=== PATIENT | female | born 1970 | race Caucasian/White ===

== ENCOUNTER → 2016-05-21 | Outpatient (CLI) | payer OTHER | END | disposition home or self-care (01) | LOC: YCFC.O 08:36 | PROVIDERS: ATTEND Anesthesiology Pain Medicine | DX: Z79.891 Long term (current) use of opiate analgesic (principal) ==

== ENCOUNTER → 2016-06-07 | Outpatient (CLI) | payer OTHER | END | disposition home or self-care (01) | LOC: GMAB 17:25 | PROVIDERS: ATTEND Family Medicine | DX: N39.0 Urinary tract infection, site not specified (principal) ==

== ENCOUNTER → 2016-10-02 | Outpatient (CLI) | payer OTHER | END | disposition home or self-care (01) | LOC: YCFC.O 14:23 | PROVIDERS: ATTEND Anesthesiology Pain Medicine | DX: Z79.891 Long term (current) use of opiate analgesic (principal) ==

== ENCOUNTER → 2017-01-01 | Outpatient (CLI) | payer OTHER | END | disposition home or self-care (01) | LOC: YCFC.O 16:20 | PROVIDERS: ATTEND Anesthesiology Pain Medicine | DX: Z79.891 Long term (current) use of opiate analgesic (principal) ==

== ENCOUNTER → 2017-01-07 | Outpatient (CLI) | payer OTHER ==
--- NOTE | 2017-01-11 15:20 | MAM ---
EXAM DESCRIPTION: 3D Screening BILATERAL : Digital Mammography. CLINICAL HISTORY: 46 years Female SCREENING . No complaints. Mother and sister with breast cancer. Remote family history of ovarian cancer. Postmenopausal. Currently on HRT. COMPARISON: 2-D digital screening bilateral study 11/01/2015. Report from prior examination also reviewed. TECHNIQUE: Bilateral CC and MLO projection full-field images, 3-D tomosynthesis digital mammographic technique. Also bilateral synthesized CC/ MLO full-field images. CAD not utilized. FINDINGS: The breast parenchymal density pattern is: Scattered areas of fibroglandular density. No skin thickening or nipple retraction small intramammary lymph node lateral retroareolar right breast is stable. Also right axillary tail. No focal, stellate mass or density, focal asymmetry , and no suspicious microcalcifications bilaterally. Stable mammograms compared to prior study, taking into account differences in mammographic technique IMPRESSION: BI-RADS CATEGORY: 2 - BENIGN FINDINGS. FOLLOW UP: Routine digital bilateral screening, one year interval from December 2016. Written communication explaining the IMPRESSION and follow-up, will be mailed to the patient and referring health care provider. According to the [employer], yearly mammograms are recommended starting at age 40 and continuing as long as a woman is in good health. Any breast change noted on a breast self-exam should be reported promptly to the patient's healthcare provider. Breast MRI is recommended for women with an approximately 20-25% or greater lifetime risk of breast cancer, including women with a strong family history of breast or ovarian cancer and women who have been treated for Hodgkin's disease. A negative mammographic report should not delay tissue diagnosis in patients with significant clinical history or physical findings. Extremely dense breast tissue limits the sensitivity of digital mammography. Electronically signed by: Colin Christy MD 01/11/2017 3:19 PM CDT
== END | disposition home or self-care (01) ==
LOC: MAMMO 16:48
PROVIDERS: ATTEND Family Medicine
DX: Z12.31 Encounter for screening mammogram for malignant neoplasm of breast (principal)
CPT/HCPCS: 77063; G0202

== ENCOUNTER → 2017-08-12 | Outpatient (CLI) | payer OTHER | LOC: GMAJS 17:37 | PROVIDERS: ATTEND Physician Assistant | DX: N30.00 Acute cystitis without hematuria (principal) ==

== ENCOUNTER → 2017-09-19 | Outpatient (CLI) | payer OTHER | LOC: GMAE 11:01 | PROVIDERS: ATTEND Family Medicine | DX: Z00.00 Encounter for general adult medical examination without abnormal findings (principal) ==

== ENCOUNTER → 2017-09-19 | Outpatient (CLI) | payer OTHER | LOC: GMAE 15:42 | PROVIDERS: ATTEND Family Medicine | DX: D72.819 Decreased white blood cell count, unspecified (principal) ==

== ENCOUNTER → 2017-12-26 | Outpatient (CLI) | payer OTHER ==
--- NOTE | 2017-12-27 09:55 | US ---
EXAM DESCRIPTION: Soft Tissue,Extremity CLINICAL HISTORY: 47 years Female, ENLARGED LYMPH NODES, UNSPECIFIED COMPARISON: None. FINDINGS: Ultrasound of the subcutaneous soft tissues at the area of concern in the right thigh was performed. There are several subtle isoechoic round or ovoid masses in the subcutaneous fat at the area of concern which probably represent lipomas. The largest of these measures up to 3.9 cm maximum diameter, with the majority measuring in the 1 to 2 cm range. No additional mass or fluid collection is seen. No interstitial edema or skin thickening. Additional images of the left thigh show a similar appearing 1 cm lesion at the area of concern in the left thigh. IMPRESSION: Several tiny round or ovoid masses in the subcutaneous fat at the areas of concern in both thighs likely representing lipomas. Otherwise unremarkable exam. Electronically signed by: Efrain Aguirre MD 12/27/2017 9:53 AM CDT
== END ==
LOC: US 14:25
PROVIDERS: ATTEND Family Medicine
DX: R59.9 Enlarged lymph nodes, unspecified (principal)

== ENCOUNTER → 2018-01-21 | Outpatient (CLI) | payer OTHER ==
--- NOTE | 2018-01-23 15:21 | MAM ---
EXAM DESCRIPTION: 3D Screening BILATERAL : Digital Mammography. CLINICAL HISTORY: 48 years Female ANNUAL SCREENING .. No complaints or personal history of breast cancer. Mother and sister with breast cancer. Remote family history of breast cancer. Childbirth. Postmenopausal 15 years. Currently on HRT. Lifetime risk of developing breast cancer (Tyrer-Cuzick model)(%): 36.8. COMPARISON: Bilateral screening digital breast tomosynthesis 01/07/2017.. TECHNIQUE: Bilateral CC and MLO projection full-field images, digital tomosynthesis mammographic technique. Bilateral digital 2-D full-field MLO images. CAD not available for tomosynthesis or 2-D images. FINDINGS: The breast parenchymal density pattern is: Scattered areas of fibroglandular density. No skin thickening or nipple retraction. Focally dense tissue retroareolar right breast is stable since the prior examination. No new focal, stellate mass or density, focal asymmetry , and no suspicious microcalcifications bilaterally. Stable mammograms compared to prior study. IMPRESSION: Benign exam. BIRAD CATEGORY: 2 BENIGN FINDINGS. RECOMMENDATIONS: FOLLOW UP: Routine digital bilateral mammographic screening, one year interval from January 2018. Due to greater than 25% lifetime risk of breast cancer, breast MRI should be considered. Please see below*. Written communication explaining the IMPRESSION and follow-up, will be mailed to the patient and referring health care provider. According to the [employer], yearly mammograms are recommended starting at age 40 and continuing as long as a woman is in good health. Any breast change noted on a breast self-exam should be reported promptly to the patient's healthcare provider. *Breast MRI is recommended for women with an approximately 20-25% or greater lifetime risk of breast cancer, including women with a strong family history of breast or ovarian cancer and women who have been treated for Hodgkin's disease. A negative mammographic report should not delay tissue diagnosis in patients with significant clinical history or physical findings. Extremely dense breast tissue limits the sensitivity of digital mammography. Electronically signed by: Colin Christy MD 01/23/2018 3:20 PM HEALTH SPECIALIST
== END ==
LOC: MAMMO 16:30
PROVIDERS: ATTEND Family Medicine
DX: Z12.31 Encounter for screening mammogram for malignant neoplasm of breast (principal)

== ENCOUNTER → 2018-06-24 | Outpatient (CLI) | payer OTHER | LOC: GMAE 17:01 | PROVIDERS: ATTEND Family Medicine | DX: D50.8 Other iron deficiency anemias (principal); E53.8 Deficiency of other specified B group vitamins; D64.9 Anemia, unspecified; D72.819 Decreased white blood cell count, unspecified; E55.9 Vitamin D deficiency, unspecified ==

== ENCOUNTER → 2018-06-26 | Outpatient (CLI) | payer OTHER ==
--- NOTE | 2018-06-27 12:59 | RAD ---
EXAM: Elbow,Right 3 Views CLINICAL HISTORY: PAIN IN ELBOW. TECHNIQUE: AP, lateral images. COMPARISON STUDY: None FINDINGS: Bone structures and joint spaces appear normal. No fracture or dislocation identified. There is no joint effusion. Is a tiny calcification posterior to the joint line. There are calcifications at the medial and lateral epicondyles. IMPRESSION: No fracture, dislocation or joint effusion. Calcifications suggest chronic medial and lateral epicondylitis. Electronically signed by: Jaquan Augustin MD 06/27/2018 12:56 PM CDT
== END ==
LOC: RAD 16:57
PROVIDERS: ATTEND Orthopaedic Surgery
DX: M25.521 Pain in right elbow (principal)

== ENCOUNTER → 2018-10-07 | Outpatient (CLI) | payer OTHER | LOC: GMAE 20:12 | PROVIDERS: ATTEND Family Medicine | DX: D72.819 Decreased white blood cell count, unspecified (principal); G89.29 Other chronic pain; R76.0 Raised antibody titer ==

== ENCOUNTER → 2019-01-22 | Outpatient (CLI) | payer OTHER | LOC: GMAE 10:41 | PROVIDERS: ATTEND Family Medicine | DX: E03.9 Hypothyroidism, unspecified (principal); E78.00 Pure hypercholesterolemia, unspecified; I10 Essential (primary) hypertension; E55.9 Vitamin D deficiency, unspecified ==

== ENCOUNTER → 2020-01-19 | Outpatient (CLI) | payer BC, OTHER | LOC: GMAE 11:26 | PROVIDERS: ATTEND Family Medicine | DX: B34.2 Coronavirus infection, unspecified (principal); R71.8 Other abnormality of red blood cells; R09.02 Hypoxemia ==

== ENCOUNTER → 2020-01-19 | Outpatient (CLI) | payer BC, OTHER ==
--- NOTE | 2020-01-19 15:50 | RAD ---
EXAM DESCRIPTION: Chest,2 Views CLINICAL HISTORY: 50 years Female, COVID COMPARISON: 01/09/2019 FINDINGS: 2 views/radiographs Heart size and pulmonary vessels are within normal limits. There is no pneumothorax or pleural effusion. The lungs are clear bilaterally. The soft tissues are unremarkable. No acute osseous findings. IMPRESSION: No acute cardiopulmonary abnormality. Electronically signed by: Suraj Dawson MD 01/19/2020 3:48 PM [employer]
== END ==
LOC: RAD 11:17
PROVIDERS: ATTEND Family Medicine
DX: B34.2 Coronavirus infection, unspecified (principal)

== ENCOUNTER → 2020-02-25 | Outpatient (CLI) | payer BC, OTHER | LOC: GMAE 10:41 | PROVIDERS: ATTEND Family Medicine | DX: Z00.00 Encounter for general adult medical examination without abnormal findings (principal) ==